=== PATIENT | female | born 1950 | race Asian ===

== ENCOUNTER 2018-12-09 14:00 | Observation (INO) | payer BC, MEDICARE ==
[~2018-12-09] VITALS: Ht 154.9 cm; Wt 46.8 kg
[2018-12-09 14:55] VITALS: Ht 154.9 cm; Wt 46.8 kg
[2018-12-09] MEDS ORDERED: NITROGLYCERIN 2% 1 GM OINT PKT TD STA (17:37)
[2018-12-09] MEDS ORDERED: LEVO50TA7 PO (18:28)
[2018-12-09] MEDS ORDERED: LEVO25TA6 PO (18:29)
[2018-12-09] MEDS ORDERED: LOSA100T15 PO (18:29)
[2018-12-09] MEDS ORDERED: AMLO5TAB4 PO (18:29)
[2018-12-09] MEDS ORDERED: ONDANSETRON 4 MG INJ IV PRN (20:00)
[2018-12-09] MEDS ORDERED: ACETAMINOPHEN 325 MG TAB PO PRN ×2 (20:00→23:30)
--- NOTE | 2018-12-09 20:13 | ERD ---
ER Documentation Chief Complaint Chief Complaint c/o left sided chest pain x2 days, non radiating HPI This is a 68-year-old female with strong family history of coronary disease including 2 sisters with cardiac disease and cardiac arrest. The patient presents with chest pain that started 2 days ago. The chest pain was pressure-like and nonradiating, nonexertional. No chest pain since then but the patient had an episode of nausea and diaphoresis earlier this morning. No symptoms currently. She took aspirin prior to arrival. Patient denies any fevers, chills, cough, shortness of breath or pleuritic pain. ROS All systems reviewed and are negative except as per history of present illness. Medications Home Meds Reported Medications Levothyroxine Sodium* (Levothyroxine Sodium*) 25 Mcg Tablet, 25 MCG PO BEFORE BREAKFAST, #30 TAB 12/09/18 Losartan Potassium* (Losartan Potassium*) 100 Mg Tablet, 100 MG PO DAILY, TAB 12/09/18 Amlodipine Besylate* (Norvasc*) 5 Mg Tablet, 5 MG PO DAILY, TAB 12/09/18 Discontinued Reported Medications Levothyroxine Sodium* (Levothyroxine Sodium*) 50 Mcg Tablet, 50 MCG PO BEFORE BREAKFAST, #30 TAB 12/09/18 Allergies Allergies: Coded Allergies: No Known Allergy (Unverified , 12/09/18) PMhx/Soc Hx Alcohol Use: No Hx Substance Use: No Hx Tobacco Use: No Smoking Status: Never smoker FmHx Family History: coronary disease; No diabetes Physical Exam Vitals Vital Signs Date Temp Pulse Resp B/P (MAP) Pulse Ox O2 O2 Flow FiO2 Time Delivery Rate 12/09/18 62 18 157/95 99 Room Air 18:04 (115) 12/09/18 98.4 60 20 167/81 99 14:55 (109) Physical Exam General: Well developed, well nourished, no acute distress Head: Normocephalic, atraumatic. Eyes: Pupils equally reactive, EOM intact ENT: Moist mucous membranes Neck: Supple, no lymphadenopathy Respiratory: Lungs clear bilaterally, no distress Cardiovascular: RRR, no murmurs, rubs, or gallops Abdominal: Soft, non-tender, non-distended, no peritoneal signs : Deferred MSK: No edema, no unilateral swelling, 5/5 strength Neurologic: Alert and oriented, moving all extremities, normal speech, no focal weakness, no cerebellar signs Skin: No rash Psych: Normal mood Result Diagram: 12/09/18 17512/09/181756 Results 24 hrs Laboratory Tests Test 12/09/18 17:57 White Blood Count 5.8 10^3/ul Red Blood Count 4.75 10^6/ul Hemoglobin 14.6 g/dl Hematocrit 43.6 % Mean Corpuscular Volume 91.8 fl Mean Corpuscular Hemoglobin 30.7 pg Mean Corpuscular Hemoglobin Concent 33.5 g/dl Red Cell Distribution Width 11.7 % Platelet Count 307 10^3/UL Mean Platelet Volume 9.9 fl Immature Granulocytes % 0.500 % Neutrophils % 50.6 % Lymphocytes % 39.1 % Monocytes % 6.7 % Eosinophils % 2.2 % Basophils % 0.9 % Nucleated Red Blood Cells % 0.0 /100WBC Immature Granulocytes # 0.030 10^3/ul Neutrophils # 3.0 10^3/ul Lymphocytes # 2.3 10^3/ul Monocytes # 0.4 10^3/ul Eosinophils # 0.1 10^3/ul Basophils # 0.1 10^3/ul Nucleated Red Blood Cells # 0.0 10^3/ul Sodium Level 143 mmol/L Potassium Level 5.0 mmol/L Chloride Level 107 mmol/L Carbon Dioxide Level 26 mmol/L Anion Gap 10 Blood Urea Nitrogen 18 mg/dl Creatinine 0.60 mg/dl Est Glomerular Filtrat Rate mL/min > 60 mL/min Glucose Level 77 mg/dl Calcium Level 9.8 mg/dl Troponin I < 0.012 ng/ml Current Medications Medications Dose Sig/Buddy Start Time Status Last (Trade) Ordered Route PRN Stop Time Admin Dose Reason Admin 1 inch ONCE STAT 12/09/18 DC 12/09/18 Nitroglycerin TD 17:37 17:48 12/09/18 17:38 (Nitroglyceri n 2% Oint) Ondansetron 4 mg ER BRIDGE 12/09/18 HCl (Zofran PRN IV 20:00 Inj) NAUSEA/VOMITI 12/10/18 19:59 NG 650 mg ER BRIDGE 12/09/18 Acetaminophen PRN PO 20:00 (Tylenol .MILD PAIN 12/10/18 19:59 Tab) 1-3 OR TEMP Procedures/MDM EKG, MONITORS, & DIAGNOSTIC IMAGING: EKG: I reviewed and interpreted a 12-lead EKG. Rhythm: Normal sinus rhythm ST Changes: No contiguous ST segment elevations T waves: No contiguous T wave inversions Impression: [No evidence of acute cardiac ischemia] Repeat EKG: EKG: I reviewed and interpreted a 12-lead EKG. Rhythm: Normal sinus rhythm ST Changes: No contiguous ST segment elevations T waves: No contiguous T wave inversions Impression: [No evidence of acute cardiac ischemia] Chest x-ray: I reviewed and interpreted a 1 view of the chest Mediastinum: No enlargement Cardiac silhouette: No cardiomegaly Airspace: Clear lung coles bilaterally without evidence of pneumothorax Bones: No evidence of fracture PROCEDURES: [None] LAB INTERPRETATION: Negative troponin MEDICAL DECISION MAKING: The patient's history, physical exam and clinical presentation is concerning for possible cardiogenic etiology and acute coronary syndrome. Based on the patient's clinical exam and history and risk factors, I have a much lower clinical concern for pulmonary embolism, acute aortic dissection, pneumothorax, pneumonia, cardiac tamponade HEART Score: Greater than 4 MACE Rate: 16.6% Shared Decision Making: We had a conversation regarding risk stratification, MACE rate, and the risks, benefits, alternatives of disposition planning options. Disposition planning: Given strong family history recommend admission ER COURSE: * Aspirin given prior to arrival. Nitroglycerin applied. Blood pressure improving. Chest pain-free. * Troponin negative. CONSULTATION: [None] DISPOSITION PLAN: Telemetry admission for management of chest pain to rule out acute coronary syndrome, serial enzymes, risk stratification and consideration of provocative testing CONSULTATION: Accepting care team and consultations: I discussed the current laboratory data, diagnostic imaging and emergency care provided. Admitting team: Dr. Rush Admitting team indication: Insurance directed Departure Diagnosis: Primary Impression: Chest pain Chest pain type: unspecified Qualified Codes: R07.9 - Chest pain, unspecified Additional Impression: Hypertensive urgency Condition: Stable ODALIS KELLOGG MD Dec 09, 2018 20:13
[2018-12-09] MEDS ORDERED: HYDROCODONE/APAP (5/325) TAB PO PRN (23:30)
[2018-12-09] MEDS ORDERED: NACL 0.9% 3 ML SYG IV SCH (23:30)
[2018-12-09] MEDS ORDERED: NITROGLYCERIN (SL) 0.4 MG TAB SL PRN (23:30)
[2018-12-09] MEDS ORDERED: ALBUTEROL/IPRATROPIUM (NEB) 3 ML AMP HHN PRN (23:30)
--- NOTE | 2018-12-09 23:35 | HP ---
Date/Time of Note Date/Time of Note DATE: 12/09/18 TIME: 23:35 Assessment/Plan VTE Prophylaxis Pharmacological prophylaxis: heparin Lines/Catheters IV Catheter Type (from Nrsg): Saline Lock Assessment/Plan Assessment/Plan 68-year-old female with a history of hypertension, hypothyroidism status post thyroidectomy, left breast lumpectomy and strong family history of heart disease including CAD and cardiac arrest presents with chest pain. Need to rule out ACS. So far first troponin negative and EKG without ST elevation or depression. 1. Chest pain Telemetry admission Supplemental oxygen, aspirin, statin. As needed nitro Serial troponin 2D echo Cardiology consult Continue home meds and adjust as needed Check A1c, fasting lipid and TSH 2. History of left breast carcinoma s/p lumpectomy/radiation, currently in remission x 6 years 3. Hypothyroidism; hx of thyroidectomy. cont synthroid Result Diagram: 12/09/18175612/09/181756 Results 24hrs Laboratory Tests Test 12/09/18 17:57 White Blood Count 5.8 Red Blood Count 4.75 Hemoglobin 14.6 Hematocrit 43.6 Mean Corpuscular Volume 91.8 Mean Corpuscular Hemoglobin 30.7 Mean Corpuscular Hemoglobin Concent 33.5 Red Cell Distribution Width 11.7 Platelet Count 307 Mean Platelet Volume 9.9 Immature Granulocytes % 0.500 H Neutrophils % 50.6 Lymphocytes % 39.1 Monocytes % 6.7 Eosinophils % 2.2 Basophils % 0.9 Nucleated Red Blood Cells % 0.0 Immature Granulocytes # 0.030 Neutrophils # 3.0 Lymphocytes # 2.3 Monocytes # 0.4 Eosinophils # 0.1 Basophils # 0.1 Nucleated Red Blood Cells # 0.0 Sodium Level 143 Potassium Level 5.0 Chloride Level 107 Carbon Dioxide Level 26 Anion Gap 10 Blood Urea Nitrogen 18 Creatinine 0.60 Est Glomerular Filtrat Rate mL/min > 60 Glucose Level 77 Calcium Level 9.8 Troponin I < 0.012 HPI/ROS Admit Date/Time Admit Date/Time Hx of Present Illness This is a 65-year-old female with a history of hypertension, hypothyroidism status post thyroidectomy, left breast carcinoma s/p lumpectomy/radiation, currently in remission who presents the ER complaining of chest pain. Chest pain started 2 days ago and again this morning. It is left-sided, described as "wound in my heart". Non-exertional. Reported intermittent shortness of breath. she said she had back pain 1 week prior. no trauma. Patient has a family history of CAD and cardiac arrest. In the ER, first troponin is negative and EKG without ST elevation or depression. PMH/Family/Social Past Medical History Past Surgical Hx: other (See HPI) Family History Significant Family History: no pertinent family hx Social History Alcohol Use: other Smoking Status: Never smoker Drug Use: none Exam/Review of Systems Vital Signs Exam Constitutional: alert, oriented, well developed, other (No acute distress. Answering questions appropriately) Head: normocephalic, atraumatic Eyes: EOMI, PERRL Respiratory: clear to auscultation, normal air movement Cardiovascular: regular rate and rhythm, nl pulses Gastrointestinal: soft, other (Tenderness in the epigastric area) Extremities: other (Trace pitting edema noted) Medications Current Medications Ondansetron HCl (Zofran Inj) 4 mg ER BRIDGE PRN IV NAUSEA/VOMITING; Start 12/09/18 at 20:00; Stop 12/10/18 at 19:59 Acetaminophen (Tylenol Tab) 650 mg ER BRIDGE PRN PO .MILD PAIN 1-3 OR TEMP; Start 12/09/18 at 20:00; Stop 12/10/18 at 19:59 IV Flush (NS 3 ml) 3 ml PER PROTOCOL IV ; Start 12/09/18 at 23:30; Status UNV Aspirin (Aspirin) 81 mg DAILY PO ; Start 12/10/18 at 09:00; Status UNV Nitroglycerin (Nitroglycerin (Sl Tab) 0.4 Mg) 1 tab Q5M PRN SL .CHEST PAIN; Start 12/09/18 at 23:30; Status UNV Acetaminophen (Tylenol Tab) 650 mg Q6H PRN PO .PAIN 1-3 OR TEMP; Start 12/09/18 at 23:30; Status UNV Acetaminophen/ Hydrocodone Bitart ([place] (5/325)) 1 tab Q6H PRN PO .PAIN 4-6; Start 12/09/18 at 23:30; Status UNV Enoxaparin Sodium (Lovenox) 40 mg DAILY SC ; Start 12/10/18 at 09:00; Status UNV Albuterol/ Ipratropium (Duoneb) 3 ml Q2H RESP THERAPY PRN HHN SHORTNESS OF BREATH; Start 12/09/18 at 23:30; Status UNV Amlodipine Besylate (Norvasc) 5 mg DAILY PO ; Start 12/10/18 at 09:00; Status UNV Levothyroxine Sodium (Synthroid) 25 mcg BEFORE BREAKFAST PO ; Start 12/10/18 at 07:00; Status UNV Losartan Potassium (Cozaar) 100 mg DAILY PO ; Start 12/10/18 at 09:00; Status UNV Coded Allergies: No Known Allergy (Unverified , 12/09/18) Social History Smoking Status: Never smoker Exam/Review of Systems Vital Signs Vitals Vital Signs Date Temp Pulse Resp B/P (MAP) Pulse Ox O2 O2 Flow FiO2 Time Delivery Rate 12/09/18 Nasal 20:34 Cannula 12/09/18 62 18 157/95 99 18:04 (115) 12/09/18 98.4 14:55 UMA SIDDIQI MD Dec 09, 2018 23:35
[2018-12-10] MEDS ORDERED: METOPROLOL 5 MG INJ ONE (01:08)
[2018-12-10] MEDS: LEVOTHYROXINE 25 MCG TAB PO SCH (07:55)
[2018-12-10] MEDS: ASPIRIN 81 MG TAB PO SCH (08:27)
[2018-12-10] MEDS: AMLODIPINE 5 MG TAB PO SCH (08:28)
[2018-12-10] MEDS: LOSARTAN 50 MG TAB PO SCH (08:29)
[2018-12-10] MEDS: ENOXAPARIN 40 MG/0.4 ML SYG SC SCH (09:28)
--- NOTE | 2018-12-10 10:27 | RADRPT ---
Echocardiogram Report Patient Name: ADEOLA ROGERSPatient ID: [id number] : 1950 (68y 3m)Study Date: 12/10/2018 9:40:28 AM Gender: FAccession #: [id number] Tech: [place] Location: Ref.Physician: UMA SIDDIQI Height(Cm): BSA: Weight(Kg): Quality: GoodAccount #: Procedures: Echocardiographic Report: Transthoracic echocardiogram with complete 2D, M-Mode, and doppler examination. Indications: Chest Pain. Measurements: 2D/M Mode Doppler Measurement Value Normal Range Measurement Value Normal Range LVIDd 2D 3.5 [ 3.8 - 5.2 ] cm AV Peak Bry 1.6 [ 100.0 - 170.0 ] cm/sec LVIDs 2D 2.0 [ 2.2 - 3.5 ] cm AV Peak PG 10.0 [ 2.0 - 9.0 ] mmHg LVPWd 2D 1.0 [ 0.6 - 0.9 ] cm LVOT Peak Bry 1.4 [ 70.0 - 110.0 ] cm/sec IVSd 2D 1.0 [ 0.6 - 0.9 ] cm LVOT Peak PG 7.0 [ 2.0 - 6.0 ] mmHg AoR Diam 2D 2.2 [ 2.3 - 3.1 ] cm MV E Peak Bry 0.7 [ 60.0 - 130.0 ] cm/sec EDV 2D 51.9 [ 46.0 - 106.0 ] ml MV A Peak Bry 0.8 [ 100.0 - 120.0 ] cm/sec ESV 2D 13.6 [ 14.0 - 42.0 ] ml MV E/A 0.8 [ 0.8 - 1.5 ] ratio EF 2D 73.8 [ 54.0 - 74.0 ] percent MV Decel Time 218 [ 104 - 258 ] msec LA Dimen 2D 2.8 [ 2.7 - 3.8 ] cm Lat E` Bry 0.1 [ 10.0 - 15.0 ] cm/sec Lateral E/E` 7.4 [ 1.0 - 2.0 ] ratio MV E/A 0.8 [ 0.8 - 1.5 ] ratio Findings: Left Ventricle: Normal left ventricular systolic function. Normal left ventricular cavity size. Normal left ventricular wall thickness. Ejection fraction is visually estimated at 60 %. Tissue Doppler/Mitral Doppler indices are consistent with impaired relaxation (Stage I diastolic dysfunction). Right Ventricle: Normal right ventricular size. Normal right ventricular systolic function. Left Atrium: The left atrium is normal in size. Right Atrium: The right atrium is normal in size. Mitral Valve: Normal appearance of the mitral valve. Normal appearance and function of the mitral valve with trace physiologic regurgitation. Aortic Valve: Normal appearance of the aortic valve. No significant aortic stenosis or insufficiency. Tricuspid Valve: Normal appearance of the tricuspid valve. Unable to obtain RVSP due to minimal presence of tricuspid regurgitation. No evidence of tricuspid regurgitation. Pericardium: Normal pericardium with no significant pericardial effusion. Aorta: Normal aortic root. IVC: Normal size and normal respiratory collapse consistent with normal right atrial pressure. Conclusions: Normal left ventricular systolic function. Normal left ventricular cavity size. Normal left ventricular wall thickness. Ejection fraction is visually estimated at 60 %. Tissue Doppler/Mitral Doppler indices are consistent with impaired relaxation (Stage I diastolic dysfunction). No significant valvular stenosis or regurgitation seen. Unable to obtain RVSP due to minimal presence of tricuspid regurgitation. Normal size and normal respiratory collapse consistent with normal right atrial pressure. Electronically Signed By: Emmett Orr 2018-12-10 10:26:30 PDT
[2018-12-10] MEDS ORDERED: METOPROLOL 25 MG TAB PO ONE (10:30)
--- NOTE | 2018-12-10 10:55 | PN ---
Date/Time of Note Date/Time of Note DATE: 12/10/18 TIME: 10:55 Objective Vitals Vital Signs Date Temp Pulse Resp B/P (MAP) Pulse Ox O2 O2 Flow FiO2 Time Delivery Rate 12/10/18 98.4 70 18 108/79 99 Room Air 05:39 (34) 70 Results Result Diagram: 12/10/18 0608 12/10/18 0608 Medications Medications Current Medications Ondansetron HCl (Zofran Inj) 4 mg ER BRIDGE PRN IV NAUSEA/VOMITING; Start 12/09/18 at 20:00; Stop 12/10/18 at 19:59 Acetaminophen (Tylenol Tab) 650 mg ER BRIDGE PRN PO .MILD PAIN 1-3 OR TEMP; Start 12/09/18 at 20:00; Stop 12/10/18 at 19:59 IV Flush (NS 3 ml) 3 ml PER PROTOCOL IV ; Start 12/09/18 at 23:30 Aspirin (Aspirin) 81 mg DAILY PO Last administered on 12/10/18at 08:27; Admin Dose 81 MG; Start 12/10/18 at 09:00 Nitroglycerin (Nitroglycerin (Sl Tab) 0.4 Mg) 1 tab Q5M PRN SL .CHEST PAIN; Start 12/09/18 at 23:30 Acetaminophen (Tylenol Tab) 650 mg Q6H PRN PO .PAIN 1-3 OR TEMP; Start 12/09/18 at 23:30 Acetaminophen/ Hydrocodone Bitart ([place] (5/325)) 1 tab Q6H PRN PO .PAIN 4-6 Last administered on 12/10/18at 01:41; Admin Dose 1 TAB; Start 12/09/18 at 23:30 Enoxaparin Sodium (Lovenox) 40 mg DAILY SC Last administered on 12/10/18at 09:28; Admin Dose 40 MG; Start 12/10/18 at 09:00 Albuterol/ Ipratropium (Duoneb) 3 ml Q2H RESP THERAPY PRN HHN SHORTNESS OF BREATH; Start 12/09/18 at 23:30 Amlodipine Besylate (Norvasc) 5 mg DAILY PO Last administered on 12/10/18at 08:28; Admin Dose 5 MG; Start 12/10/18 at 09:00 Levothyroxine Sodium (Synthroid) 25 mcg BEFORE BREAKFAST PO Last administered on 12/10/18at 07:55; Admin Dose 25 MCG; Start 12/10/18 at 07:00 Losartan Potassium (Cozaar) 100 mg DAILY PO Last administered on 12/10/18at 08:29; Admin Dose 100 MG; Start 12/10/18 at 09:00 Lines/Catheters IV Catheter Type: Rodriguez in Place: No Assessment/Plan Hospital Course Subjective No acute issues at this time, no chest pain Objective Physical exam General: Patient is laying in bed and answers questions appropriately Mentation: Patient is alert and oriented 4, Head: Normocephalic atraumatic Eyes: EOMI, pupils reactive to light Neck: Supple, nontender, midline Respiratory: Clear to auscultation bilaterally Cardiovascular: regular rate, no obvious murmurs Gastrointestinal: non-tender to palpation, bowel sounds heard. Neurological: Moves all extremities spontaneously Skin: No new skin lesions Assessment and plan Chest pain -Troponin negative -patient has a strong family history of cardiac arrest and coronary artery disease in her sister -Cardiology consulted due to family history -Echo pending Hypertension -Continue home meds Hypothyroidism -Continue home meds History of left breast carcinoma -Currently in remission, monitor outpatient Disposition -Follow-up with cardiology recommendations. REINA COBB Dec 10, 2018 10:55
--- NOTE | 2018-12-10 11:11 | CONS ---
Assessment/Plan Assessment/Plan Hospital Course (Demo Recall) Chest pain: Atypical but with CAD risk factors. Trops and EKG normal. Echo unremarkable. Cardiac CTA to eval anatomy HTN Breast ca s/p chemo Thyroidectomy/hypothyroidism -cardiac CTA today. If normal coronaries, can be discharged -metoprolol 25mg for CTA -continue ASA for now, can d/c if normal coronaries -amlodipine, losartan Consultation Date/Type/Reason Admit Date/Time Date of Consultation: Dec 10, 2018 Type of Consult Cardiology Reason for Consultation Chest pain Requesting Provider: REINA COBB Date/Time of Note DATE: 12/10/18 TIME: 11:06 Hx of Present Illness 68 yo F with a h/o HTN, hypothyroidism, breast ca s/p chemo, presenting with chest pain. She notes that over the past 3 days she has been experiencing random episodes of chest pressure which occur at different times. Mostly at rest. She has not noticed symptoms when she is walking or gardening. Feels well now. Her sister had cardiac arrest but at age 80 and her other sister in her late 30s as a complication related to heart valve surgery. Past Medical History per [facility] Home Meds Reported Medications Levothyroxine Sodium* (Levothyroxine Sodium*) 25 Mcg Tablet, 25 MCG PO BEFORE BREAKFAST, #30 TAB 12/09/18 Losartan Potassium* (Losartan Potassium*) 100 Mg Tablet, 100 MG PO DAILY, TAB 12/09/18 Amlodipine Besylate* (Norvasc*) 5 Mg Tablet, 5 MG PO DAILY, TAB 12/09/18 Discontinued Reported Medications Levothyroxine Sodium* (Levothyroxine Sodium*) 50 Mcg Tablet, 50 MCG PO BEFORE BREAKFAST, #30 TAB 12/09/18 Medications Current Medications Ondansetron HCl (Zofran Inj) 4 mg ER BRIDGE PRN IV NAUSEA/VOMITING; Start 12/09/18 at 20:00; Stop 12/10/18 at 19:59 Acetaminophen (Tylenol Tab) 650 mg ER BRIDGE PRN PO .MILD PAIN 1-3 OR TEMP; Start 12/09/18 at 20:00; Stop 12/10/18 at 19:59 IV Flush (NS 3 ml) 3 ml PER PROTOCOL IV ; Start 12/09/18 at 23:30 Aspirin (Aspirin) 81 mg DAILY PO Last administered on 12/10/18at 08:27; Admin Dose 81 MG; Start 12/10/18 at 09:00 Nitroglycerin (Nitroglycerin (Sl Tab) 0.4 Mg) 1 tab Q5M PRN SL .CHEST PAIN; Start 12/09/18 at 23:30 Acetaminophen (Tylenol Tab) 650 mg Q6H PRN PO .PAIN 1-3 OR TEMP; Start 12/09/18 at 23:30 Acetaminophen/ Hydrocodone Bitart ([place] (5/325)) 1 tab Q6H PRN PO .PAIN 4-6 Last administered on 12/10/18at 01:41; Admin Dose 1 TAB; Start 12/09/18 at 23:30 Enoxaparin Sodium (Lovenox) 40 mg DAILY SC Last administered on 12/10/18at 09:28; Admin Dose 40 MG; Start 12/10/18 at 09:00 Albuterol/ Ipratropium (Duoneb) 3 ml Q2H RESP THERAPY PRN HHN SHORTNESS OF BREATH; Start 12/09/18 at 23:30 Amlodipine Besylate (Norvasc) 5 mg DAILY PO Last administered on 12/10/18at 08:28; Admin Dose 5 MG; Start 12/10/18 at 09:00 Levothyroxine Sodium (Synthroid) 25 mcg BEFORE BREAKFAST PO Last administered on 12/10/18at 07:55; Admin Dose 25 MCG; Start 12/10/18 at 07:00 Losartan Potassium (Cozaar) 100 mg DAILY PO Last administered on 12/10/18at 08:29; Admin Dose 100 MG; Start 12/10/18 at 09:00 Allergies: Coded Allergies: No Known Allergy (Unverified , 12/09/18) Social History Smoking Status: Never smoker Exam/Review of Systems Vital Signs Vitals Vital Signs Date Temp Pulse Resp B/P (MAP) Pulse Ox O2 O2 Flow FiO2 Time Delivery Rate 12/10/18 98.4 70 18 108/79 99 Room Air 05:39 (89) 70 Exam Constitutional: alert, oriented Psych: no complaints, nl mood/affect Head: normocephalic, atraumatic Neck: supple; No jvd Respiratory: clear to auscultation; No crackles/rales Cardiovascular: regular rate and rhythm; No edema, No systolic murmur Gastrointestinal: soft, non-tender; No distended Musculoskeletal: nl extremities to inspection Neurological: nl mental status, nl speech Additional Comments EKG: sinus, no ST changes Labs Result Diagram: 12/10/18 0608 12/10/18 0608 Results 24hrs Laboratory Tests Test 12/09/18 17:57 12/10/18 00:07 12/10/18 06:08 White Blood Count 5.8 4.7 L Red Blood Count 4.75 4.64 Hemoglobin 14.6 14.0 Hematocrit 43.6 41.5 Mean Corpuscular Volume 91.8 89.4 Mean Corpuscular Hemoglobin 30.7 30.2 Mean Corpuscular Hemoglobin Concent 33.5 33.7 Red Cell Distribution Width 11.7 11.8 Platelet Count 307 301 Mean Platelet Volume 9.9 10.0 Immature Granulocytes % 0.500 H 0.400 Neutrophils % 50.6 55.1 Lymphocytes % 39.1 30.7 Monocytes % 6.7 8.6 Eosinophils % 2.2 4.1 Basophils % 0.9 1.1 Nucleated Red Blood Cells % 0.0 0.0 Immature Granulocytes # 0.030 0.020 Neutrophils # 3.0 2.6 Lymphocytes # 2.3 1.4 Monocytes # 0.4 0.4 Eosinophils # 0.1 0.2 Basophils # 0.1 0.1 Nucleated Red Blood Cells # 0.0 0.0 Sodium Level 143 144 Potassium Level 5.0 4.6 Chloride Level 107 108 Carbon Dioxide Level 26 28 Anion Gap 10 8 Blood Urea Nitrogen 18 23 H Creatinine 0.60 0.70 Est Glomerular Filtrat Rate mL/min > 60 > 60 Glucose Level 77 109 Calcium Level 9.8 9.4 Troponin I < 0.012 < 0.012 < 0.012 Creatine Kinase 53 56 Creatine Kinase Index 1.1 0.9 Creatinine Kinase MB (Mass) 0.57 0.51 Hemoglobin A1c 6.0 H Magnesium Level 2.3 Total Bilirubin 0.4 Direct Bilirubin 0.00 Indirect Bilirubin 0.4 Aspartate Amino Transf (AST/SGOT) 26 Alanine Aminotransferase (ALT/SGPT) 26 Alkaline Phosphatase 85 Total Protein 6.7 Albumin 3.9 Globulin 2.80 Albumin/Globulin Ratio 1.39 Triglycerides Level 105 Cholesterol Level 196 LDL Cholesterol, Calculated 119 HDL Cholesterol 56 Cholesterol/HDL Ratio 3.5 Thyroid Stimulating Hormone (TSH) 1.530 Medications Medications Current Medications Ondansetron HCl (Zofran Inj) 4 mg ER BRIDGE PRN IV NAUSEA/VOMITING; Start 12/09/18 at 20:00; Stop 12/10/18 at 19:59 Acetaminophen (Tylenol Tab) 650 mg ER BRIDGE PRN PO .MILD PAIN 1-3 OR TEMP; Start 12/09/18 at 20:00; Stop 12/10/18 at 19:59 IV Flush (NS 3 ml) 3 ml PER PROTOCOL IV ; Start 12/09/18 at 23:30 Aspirin (Aspirin) 81 mg DAILY PO Last administered on 12/10/18 08:27; Admin Dose 81 MG; Start 12/10/18 at 09:00 Nitroglycerin (Nitroglycerin (Sl Tab) 0.4 Mg) 1 tab Q5M PRN SL .CHEST PAIN; Start 12/09/18 at 23:30 Acetaminophen (Tylenol Tab) 650 mg Q6H PRN PO .PAIN 1-3 OR TEMP; Start 12/09/18 at 23:30 Acetaminophen/ Hydrocodone Bitart ([place] (5/325)) 1 tab Q6H PRN PO .PAIN 4-6 Last administered on 12/10/18at 01:41; Admin Dose 1 TAB; Start 12/09/18 at 23:30 Enoxaparin Sodium (Lovenox) 40 mg DAILY SC Last administered on 12/10/18 09:28; Admin Dose 40 MG; Start 12/10/18 at 09:00 Albuterol/ Ipratropium (Duoneb) 3 ml Q2H RESP THERAPY PRN HHN SHORTNESS OF REMA TH; Start 12/09/18 at 23:30 Amlodipine Besylate (Norvasc) 5 mg DAILY PO Last administered on 12/10/18at 08:28; Admin Dose 5 MG; Start 12/10/18 at 09:00 Levothyroxine Sodium (Synthroid) 25 mcg BEFORE BREAKFAST PO Last administered on 12/10/18 07:55; Admin Dose 25 MCG; Start 12/10/18 at 07:00 Losartan Potassium (Cozaar) 100 mg DAILY PO Last administered on 12/10/18 08:29; Admin Dose 100 MG; Start 12/10/18 at 09:00 KATHY DRAKE Dec 10, 2018 11:11
[2018-12-10] MEDS ORDERED: IOHEXOL 300MG/ML 150 ML BTL ONE (12:14)
[2018-12-10] MEDS ORDERED: SOD CHLORIDE 0.9% 100 ML ONE (12:14)
[2018-12-10] MEDS ORDERED: NITROGLYCERIN AEROSOL (4.9 GM) ONE (12:55)
[2018-12-10 18:24] VITALS: BP 117/71; PULSE 48; RESP 18
[2018-12-10 18:37] VITALS: PULSE 47
[2018-12-10 19:44] VITALS: BP 136/74; PULSE 48; RESP 18
[2018-12-10 20:40] VITALS: PULSE 42
[2018-12-11] VITALS (8 sets, daily range): BP systolic 119–130; BP diastolic 62–77; PULSE 42–56; RESP 16–18
[2018-12-11] MEDS: LEVOTHYROXINE 25 MCG TAB PO SCH (07:19)
[2018-12-11] MEDS: LOSARTAN 50 MG TAB PO SCH (08:17)
[2018-12-11] MEDS: ASPIRIN 81 MG TAB PO SCH (08:17)
[2018-12-11] MEDS: AMLODIPINE 5 MG TAB PO SCH (08:18)
[2018-12-11] MEDS: ENOXAPARIN 40 MG/0.4 ML SYG SC SCH (08:24)
--- NOTE | 2018-12-11 09:57 | PDOCDIS ---
Discharge Instructions CONDITION [id number] Patient Condition: [id number] Stable FOLLOW UP/APPOINTMENTS Follow-up Plan 1. Please follow-up with your primary care provider and bring the results of the CT scan so that he can be updated. 2. Please continue all home medications 3. If symptoms continue, please return to the ED REINA COBB Dec 11, 2018 09:57
--- NOTE | 2018-12-11 10:00 | DS ---
Date/Time of Note Date/Time of Note DATE: 12/11/18 TIME: 10:00 Discharge Summary Admission/Discharge Info Admit Date/Time Dec 09, 2018 at 19:57 Discharge Date/Time Patient Condition: Stable Hospital Course Patient is a [place] female with past medical history significant for hypertension hypothyroidism and history of left breast carcinoma currently in remission who presents to [facility] for chest pain. Patient was seen by cardiology and ACS was ruled out. Patient had family risk factors and a CT of cardiac was done. Results of the exam resulted in fairly normal CT results the only issue was a small plaque in the proximal section segment of the left circumflex which does not produce any stenosis. Cardiology cleared patient to be discharged. Patient did have some bradycardia overnight however this was caused secondary to given a dose of metoprolol in order to bring the heart rate down to an appreciated level for the CT cardiac. Patient's heart rate is already recovering in the 60s and patient is completely asymptomatic at this point. Other etiologies of patient's question about chest pain is GERD as patient has been diagnosed with acid reflux in the past. It was suggested Pepcid to start as patient has never tried this before. Patient will follow-up with her primary care provider within 1 to 2 weeks and bring results of the CT with her. Patient feels well and will be ready for discharge Discharge diagnosis Chest pain, ACS ruled out Hypertension Hypothyroidism History of breast carcinoma in remission Acid reflux Home Meds Reported Medications Levothyroxine Sodium* (Levothyroxine Sodium*) 25 Mcg Tablet, 25 MCG PO BEFORE BREAKFAST, #30 TAB 12/09/18 Losartan Potassium* (Losartan Potassium*) 100 Mg Tablet, 100 MG PO DAILY, TAB 12/09/18 Amlodipine Besylate* (Norvasc*) 5 Mg Tablet, 5 MG PO DAILY, TAB 12/09/18 Discontinued Reported Medications Levothyroxine Sodium* (Levothyroxine Sodium*) 50 Mcg Tablet, 50 MCG PO BEFORE BREAKFAST, #30 TAB 12/09/18 Follow-up Plan 1. Please follow-up with your primary care provider and bring the results of the CT scan so that he can be updated. 2. Please continue all home medications 3. If symptoms continue, please return to the ED Primary Care Provider Not On Staff Doctor Time spent on discharge: > 30 minutes Pending Labs Laboratory Tests Test 12/11/18 05:28 White Blood Count 5.0 10^3/ul (4.8-10.8) Red Blood Count 4.68 10^6/ul (4.20-5.40) Hemoglobin 14.3 g/dl (12.0-16.0) Hematocrit 41.6 % (37.0-47.0) Mean Corpuscular Volume 88.9 fl (82.0-101.0) Mean Corpuscular Hemoglobin 30.6 pg (29.0-33.0) Mean Corpuscular Hemoglobin Concent 34.4 g/dl (32.0-37.0) Red Cell Distribution Width 11.8 % (11.5-14.5) Platelet Count 311 10^3/UL (140-415) Mean Platelet Volume 10.0 fl (7.4-10.4) Immature Granulocytes % 0.400 % (0.001-0.429) Neutrophils % 55.1 % (39.0-77.0) Lymphocytes % 31.0 % (15.0-51.0) Monocytes % 9.3 % (0.0-11.0) Eosinophils % 3.2 % (0.0-7.0) Basophils % 1.0 % (0.0-2.0) Nucleated Red Blood Cells % 0.0 /100WBC (0.0-0.0) Immature Granulocytes # 0.020 10^3/ul (0.0-0.031) Neutrophils # 2.7 10^3/ul (1.6-7.5) Lymphocytes # 1.5 10^3/ul (0.8-2.9) Monocytes # 0.5 10^3/ul (0.3-0.9) Eosinophils # 0.2 10^3/ul (0.0-0.5) Basophils # 0.1 10^3/ul (0.0-0.1) Nucleated Red Blood Cells # 0.0 10^3/ul (0.0-0.0) Sodium Level 142 mmol/L (135-144) Potassium Level 4.1 mmol/L (3.5-5.1) Chloride Level 108 mmol/L (97-110) Carbon Dioxide Level 25 mmol/L (21-31) Anion Gap 9 (5-13) Blood Urea Nitrogen 25 mg/dl (7-20) Creatinine 0.89 mg/dl (0.44-1.00) Est Glomerular Filtrat Rate mL/min > 60 mL/min (>60) Glucose Level 103 mg/dl (70-220) Calcium Level 9.5 mg/dl (8.4-10.2) Phosphorus Level 4.4 mg/dl (2.5-4.9) Magnesium Level 2.2 mg/dl (1.7-2.5) REINA COBB Dec 11, 2018 10:00
--- NOTE | 2018-12-11 12:20 | CONS ---
Assessment/Plan Assessment/Plan Hospital Course (Demo Recall) Chest pain: Atypical. Trops and EKG normal. Echo unremarkable. Cardiac CTA no obstructive coronary lesions HTN Breast ca s/p chemo Thyroidectomy/hypothyroidism -ok for d/c home -amlodipine, losartan Consultation Date/Type/Reason Admit Date/Time Dec 09, 2018 at 19:57 Initial Consult Date 12/10/18 Type of Consult Cardiology Requesting Provider: REINA COBB Date/Time of Note DATE: 12/11/18 TIME: 12:19 24 HR Interval Summary Free Text/Dictation No events. No chest pain Exam/Review of Systems Vital Signs Vitals Vital Signs Date Temp Pulse Resp B/P (MAP) Pulse Ox O2 O2 Flow FiO2 Time Delivery Rate 12/11/18 98.7 56 18 130/77 99 10:53 (94) 12/10/18 Room Air 18:24 Intake and Output 12/10/18 12/10/18 12/11/18 1414:59 22:59 06:59 IntakeIntake Total 300 ml BalanceBalance 300 ml Exam Constitutional: alert, oriented Psych: no complaints, nl mood/affect Head: normocephalic, atraumatic Neck: No jvd Respiratory: clear to auscultation; No crackles/rales Cardiovascular: regular rate and rhythm; No edema, No systolic murmur Gastrointestinal: soft, non-tender; No distended Neurological: nl mental status, nl speech Labs Result Diagram: 12/11/1852712/11/18 0528 Results 24hrs Laboratory Tests Test 12/11/18 05:28 White Blood Count 5.0 Red Blood Count 4.68 Hemoglobin 14.3 Hematocrit 41.6 Mean Corpuscular Volume 88.9 Mean Corpuscular Hemoglobin 30.6 Mean Corpuscular Hemoglobin Concent 34.4 Red Cell Distribution Width 11.8 Platelet Count 311 Mean Platelet Volume 10.0 Immature Granulocytes % 0.400 Neutrophils % 55.1 Lymphocytes % 31.0 Monocytes % 9.3 Eosinophils % 3.2 Basophils % 1.0 Nucleated Red Blood Cells % 0.0 Immature Granulocytes # 0.020 Neutrophils # 2.7 Lymphocytes # 1.5 Monocytes # 0.5 Eosinophils # 0.2 Basophils # 0.1 Nucleated Red Blood Cells # 0.0 Sodium Level 142 Potassium Level 4.1 Chloride Level 108 Carbon Dioxide Level 25 Anion Gap 9 Blood Urea Nitrogen 25 H Creatinine 0.89 Est Glomerular Filtrat Rate mL/min > 60 Glucose Level 103 Calcium Level 9.5 Phosphorus Level 4.4 Magnesium Level 2.2 Medications Medications Current Medications IV Flush (NS 3 ml) 3 ml PER PROTOCOL IV ; Start 12/09/18 at 23:30 Aspirin (Aspirin) 81 mg DAILY PO Last administered on 12/11/18 08:17; Admin Dose 81 MG; Start 12/10/18 at 09:00 Nitroglycerin (Nitroglycerin (Sl Tab) 0.4 Mg) 1 tab Q5M PRN SL .CHEST PAIN; Start 12/09/18 at 23:30 Acetaminophen (Tylenol Tab) 650 mg Q6H PRN PO .PAIN 1-3 OR TEMP; Start 12/09/18 at 23:30 Acetaminophen/ Hydrocodone Bitart (Kennan (5/325)) 1 tab Q6H PRN PO .PAIN 4-6 Last administered on 12/10/18at 01:41; Admin Dose 1 TAB; Start 12/09/18 at 23:30 Enoxaparin Sodium (Lovenox) 40 mg DAILY SC Last administered on 12/11/18 08:24; Admin Dose 40 MG; Start 12/10/18 at 09:00 Albuterol/ Ipratropium (Duoneb) 3 ml Q2H RESP THERAPY PRN HHN SHORTNESS OF BREATH; Start 12/09/18 at 23:30 Amlodipine Besylate (Norvasc) 5 mg DAILY PO Last administered on 12/11/18 08:18; Admin Dose 5 MG; Start 12/10/18 at 09:00 Levothyroxine Sodium (Synthroid) 25 mcg BEFORE BREAKFAST PO Last administered on 12/11/18 07:19; Admin Dose 25 MCG; Start 12/10/18 at 07:00 Losartan Potassium (Cozaar) 100 mg DAILY PO Last administered on 12/11/18 08:17; Admin Dose 100 MG; Start 12/10/18 at 09:00 KATHY DRAKE Dec 11, 2018 12:20
== END 2018-12-11 14:00 | disposition home or self-care (01) ==
LOC: E/R 14:00 → 6WM 19:57 → SUATTDRO 12-10 09:28
PROVIDERS: ADMIT Internal Medicine; ATTEND Internal Medicine
DX: R07.89 Other chest pain (principal); I10 Essential (primary) hypertension; E03.9 Hypothyroidism, unspecified; Z85.3 Personal history of malignant neoplasm of breast; K21.9 Gastro-esophageal reflux disease without esophagitis; Z92.21 Personal history of antineoplastic chemotherapy; Z92.3 Personal history of irradiation; Z82.49 Family history of ischemic heart disease and other diseases of the circulatory system
CPT/HCPCS: 36415; 71045; 75574; 80048; 80053; 80061; 82550; 82553; 83036; 83735; 84100; 84443; 84484; 85025; 93005; 93306; 99285; G0378; J1650; Q9967